=== PATIENT | male | born 1970 | race African-American/Black ===

== ENCOUNTER → 2021-01-30 | Outpatient (CLI) | payer MEDICAID ==
--- NOTE | 2021-01-30 12:51 | RAD ---
EXAM: MRI right KNEE DATE: 01/30/2021 8:10 AM CLINICAL INDICATION: Reason: right knee pain / Spl. Instructions: / History: COMPARISON: 01/11/2021 radiographs TECHNIQUE: Multiplanar, multisequence MRI of the right knee was performed without contrast. FINDINGS: No knee joint effusion. No Huffman's cyst. ACL and PCL are intact. MCL, fibular collateral ligament, biceps femoris and IT band are intact. Popliteus is normal in signa l and morphology, intact. Neutral patellar tracking. Extensor mechanism is intact. Supra patellar fat pad edema may be seen wit h anterior knee pain/impingement. Medial meniscus: Intact Lateral meniscus: Oblique tear posterior horn-body junction lateral meniscus. Small parameniscal cyst is seen at the body segment lateral meniscus measuring 6 x 3 mm. Chondral thinning and fissuring posterior lateral condyle with subchondral cystic changes and edema. No fracture or osteonecrosis. IMPRESSION: 1. Oblique tear posterior horn-body lateral meniscus. Small associated para meniscal cyst 2. Chondral thinning, fissuring subchondral cystic change posterior lateral femoral condyle. Electronically signed by: Renzo Avendano MD (01/30/2021 12:49 PM) [id number]
== END ==
LOC: MRI 07:56
PROVIDERS: ATTEND Orthopaedic Surgery
DX: S83.281A Other tear of lateral meniscus, current injury, right knee, initial encounter (principal); X58.XXXA Exposure to other specified factors, initial encounter; Y93.89 Activity, other specified; Y92.89 Other specified places as the place of occurrence of the external cause; Y99.8 Other external cause status
CPT/HCPCS: 73721